=== PATIENT | male | born 1995 | race Caucasian/White ===

== ENCOUNTER 2018-06-08 19:28 | Emergency (ER) | payer BC, SELFPAY ==
[~2018-06-08 19:28] MED LIST: Iopamidol 370 76% 100 ML VIAL ONE
[2018-06-08 19:40] LABS: #Basophils 0.1 thou/uL (0.0-0.2); #Lymphocytes 1.3 thou/uL (1.20-3.40); #Monocytes 0.5 thou/uL (0.11-0.59); #Neutrophils 3.5 thou/uL (1.40-6.50); %Basophils 1.1 % (0.0-1.0); %Eosinophils 0.6 % (0.0-10.0); %Lymphocytes 24.7 % (28.0-48.0); %Monocytes 8.8 % (0.0-4.0); %Neutrophils 64.9 % (31.0-61.0); Hemoglobin 15.8 g/dL (14.0-18.0); Mean Corpuscular HGB CONC 32.9 g/dL (32.0-36.0); Mean Corpuscular Hemoglobin 28.3 pg (25.0-35.0); Mean Corpuscular Volume 85.8 fL (78.0-98.0); Mean Platelet Volume 8.1 fL (7.4-10.4); Platelet Count 307 thou/uL (130-400); RBC Distribution Width 12.3 % (11.5-14.5); Red Blood Cell (RBC) Count 5.58 mill/uL (4.00-5.20); White Blood Cell (WBC) Count 5.4 thou/uL (4.8-10.8)
[2018-06-08 20:00] LABS: ALT (SGPT) 43 U/L (8-55); AST (SGOT) 32 U/L (5-34); Albumin 4.7 g/dL (3.5-5.0); Alcohol Less than 10 mg/dL (Less than 10); Alkaline Phosphatase 52 U/L (Less than 750); Anion Gap 15 mmol/L (10-20); BUN (Urea Nitrogen) 14 mg/dL (8.9-20.6); Bilirubin, Total 0.8 mg/dL (0.2-1.2); Calc. Creatinine Clearance 0 mL/min (70-130); Calcium 9.7 mg/dL (7.8-10.44); Carbon Dioxide 24 mmol/L (22-29); Chloride 105 mmol/L (98-107); Estimated GFR-MDRD Greater than 90; Globulin 2.6 g/dL (2.4-3.5); Glucose 98 mg/dL (70-105); Potassium 4.1 mmol/L (3.5-5.1); Protein, Total 7.3 g/dL (6.0-8.3); Sodium 140 mmol/L (136-145)
[2018-06-08 20:50] LABS: Bilirubin Negative (Negative); Blood, Urine Trace (Negative); Clarity Clear (Clear); Glucose, Urine (Dipstick) Negative (Negative); Leukocyte Negative (Negative); Nitrite Negative (Negative); Protein, Urine (Dipstick) Negative (Neg-Trace); Specific Gravity, Urine 1.015 (1.005-1.030); Urobilinogen 0.2 mg/dL (0.2-1.0)
[2018-06-08 20:57] LABS: RBC/HPF 0-3 HPF (0-3)
--- NOTE | 2018-06-08 21:38 | CT ---
CT BRAIN 06/08/18 PROVIDED CLINICAL HISTORY: Trauma. FINDINGS: Evaluation is limited by patient motion. The ventricular system appears normal in size and morphology . There is no evidence for mass producing intracranial hemorrhage. There is no shift of the midline s tructures. The basilar cisterns are patent. Mucus retention cysts and mucosal thickening involve the maxillary sinuses. The extracranial soft tissues and osseous structures demonstrate an otherwise unre markable CT appearance. IMPRESSION: No evidence for mass producing intracranial hemorrhage. POS: [facility]
--- NOTE | 2018-06-08 21:56 | CT ---
CT CERVICAL SPINE 06/08/18 PROVIDED CLINICAL HISTORY: Trauma. FINDINGS: Patient motion is present, limiting evaluation. This is especially true in the region of the upper ce rvical spine. There is apparent anterolisthesis of C2 on C3 by approximately 2 to 3 mm. Cervical alig nment appears otherwise normal. Vertebral body heights appear preserved. There is no evidence for fra cture. There is no prevertebral soft tissue swelling apparent. The visualized lung apices appear amber r. IMPRESSION: No evidence for fracture. 2 to 3 mm of anterolisthesis of C2 on C3 is demonstrated. Correlate with co ncerns for ligamentous injury. POS: [facility]
--- NOTE | 2018-06-08 22:00 | CT ---
CT OF THE CHEST WITH IV CONTRAST CT OF THE ABDOMEN AND PELVIS WITH IV CONTRAST 06/08/18 PROVIDED CLINICAL HISTORY: Trauma. FINDINGS: The heart, pericardium and great vessels demonstrate no evidence of for traumatic abnormality. There is no evidence for pleural fluid or pneumothorax. The lungs appear Clear. The solid abdominal organs demonstrate a normal CT appearance. There is no bowel dilatation, inflamma tory fat stranding, free fluid or free air apparent. The osseous structures demonstrate no acute findings. The thoracic and lumbar spine sagittal and coronal reconstructions demonstrate normal spinal alignmen t and maintenance of vertebral body heights. IMPRESSION: No evidence for traumatic abnormality involving the chest, abdomen and pelvis. POS: [facility]
== END 2018-06-08 21:29 | disposition short-term general hospital (02) ==
LOC: NAV ERS 19:28
DX: S09.90XA Unspecified injury of head, initial encounter (principal); S19.9XXA Unspecified injury of neck, initial encounter; V89.2XXA Person injured in unspecified motor-vehicle accident, traffic, initial encounter
CPT/HCPCS: 70450; 71260; 72125; 74177; 80053; 80307; 81003; 81015; 85025